=== PATIENT | male | born 1990 | race Hispanic/Latino ===

== ENCOUNTER 2016-12-01 12:03 | Inpatient (IN) | payer OTHER, SELFPAY ==
[~2016-12-01] VITALS: Ht 170.2 cm; Wt 99.8 kg
[2016-12-01] MEDS ORDERED: LORazepam 1 MG TAB PO STA (13:25)
[2016-12-01 13:28] LABS: MEAN CORPUSCULAR HEMOGLOBIN 31.6 pg (27.0-33.0); MEAN CORPUSCULAR HGB CONC 35.4 g/dl (32.0-36.5); MEAN CORPUSCULAR VOLUME 89.3 fl (80.0-96.0); RED CELL DISTRIBUTION WIDTH 12.5 % (11.5-14.5); WHITE BLOOD COUNT 6.9 K/mm3 (4.0-10.0)
[2016-12-01 13:51] LABS: ALBUMIN/GLOBULIN RATIO 1.21 (1.00-1.93); ALKALINE PHOSPHATASE 75 U/L (45-117); ALT/SGPT 53 U/L (12-78); ANION GAP 8 MEQ/L (8-16); AST/SGOT 39 U/L (15-37); BILIRUBIN,DIRECT 0.1 MG/DL (0.0-0.2); BILIRUBIN,TOTAL 0.6 MG/DL (0.2-1.0); BLOOD UREA NITROGEN 17 MG/DL (7-18); CALCIUM LEVEL 9.2 MG/DL (8.5-10.1); CARBON DIOXIDE LEVEL 27 MEQ/L (21-32); CHLORIDE LEVEL 107 MEQ/L (98-107); CREATININE FOR GFR 1.07 MG/DL (0.70-1.30); GLOMERULAR FILTRATION RATE > 60.0 (>60); GLUCOSE, FASTING 83 MG/DL (70-105); SODIUM LEVEL 142 MEQ/L (136-145); TOTAL PROTEIN 7.3 GM/DL (6.4-8.2)
[2016-12-01 14:09] LABS: METHADONE URINE NEGATIVE (NEGATIVE)
[2016-12-01] MEDS ORDERED: NICOTINE 21MG/24HR 1 EA TRANSDERMAL TD ONE (14:30)
[2016-12-01] MEDS ORDERED: MAALOX 30 ML SUSP *UDC PO PRN (18:45)
[2016-12-01] MEDS ORDERED: MOM 30ML SUSPENSION UDC PO PRN (18:45)
[2016-12-01] MEDS: LORazepam 1 MG TAB PO PRN (23:37)
[2016-12-01] MEDS: ACETAMINOPHEN TAB 650MG DOSE (2X325MG) PO PRN (23:37)
[2016-12-02] MEDS: LORazepam 1 MG TAB PO PRN ×2 (06:52→17:19)
[2016-12-02] MEDS: NICOTINE 21MG/24HR 1 EA TRANSDERMAL TD SCH ×2 (09:00→17:19)
--- NOTE | 2016-12-02 11:20 | HPEPDOC ---
Medical History and Physical Date of Admission Dec 01, 2016 at 15:41 History and Physical PCP: None ATTENDING: Dr. Herrera Lin HPI: 26 [facility] unspecified depressive disorder, being medically examined today. The patient was at [employer] for training for 2 weeks from [place] with the [employer]. No acute medical complaints today. Denies any fevers, chills, weakness, fatigue, GR, CP, SOB, cough, palpitations, abdominal pain, N/V/D or changes in bowel or bladder habits. 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 ROS: As noted in HPI, otherwise 11pt ROS of systems reviewed and unremarkable. PE: GEN: 26 yo M, appears stated age. Well-nourished, well developed. No acute distress. Alert and oriented x 3. Pleasant, interactive. HEENT: Normocephalic, atraumatic. Pupils are equal, round, and reactive to light. Extraocular movements are intact. No nystagmus appreciated. Sclera are nonicteric. Conjunctiva without injection. Nose midline. Nasal turbinates without bogginess. EACs both patent BL. TMs both visualized and donohue with good cone of light, no bulging or erythema. No facial asymmetry. Moist mucous membranes. Dentition fair. Pharynx pink and moist, no cobblestoning. Neck supple , trachea midline. No lymphadenopathy or thyromegaly appreciated. CHEST: Regular rate and rhythm, +S1, +S2 LUNGS: Clear to auscultation bilaterally. No wheezes, rales, or rhonchi. Breathing appears symmetric and easy. Patient is speaking in full sentences. No accessory muscle use. ABD: Round, soft, non-tender, non-distended. +Bowel sounds throughout. No rebound or guarding. No costovertebral angle tenderness. EXT: Pulses 2+ bilaterally dorsalis pedis and radial. No lower extremity edema appreciated. SKIN: [place], dry, warm. Capillary refill <2sec. No rashes. NEURO: Alert and oriented x 3. Cranial nerves III-XII are intact. No focal deficits appreciated. EKG: pending. A&P: 26 yo M [facility] for unspecified depressive disorder 1. Psych. Plan per Psychiatry. Obtain baseline EKG to assure the safety of psychiatric medications as they can prolong the QT interval. 2. Nicotine dependence. Patch available. 3. Follow up. No Primary Care Provider. Will attempt to establish PCP on discharge. 4. Elevated AST. Recheck CMP and a.m. 5. [place] RN present throughout exam Vital Signs Vital Signs Date Time Temp Pulse Resp B/P (MAP) Pulse Ox O2 Delivery O2 Flow Rate FiO2 12/01/16 16:05 152/97 (115) 12/01/16 15:58 98.3 77 18 96 Laboratory Data Labs 24H Laboratory Tests 2 12/01/16 12:34: Anion Gap 8, Glomerular Filtration Rate > 60.0, Calcium Level 9.2, Aspartate Amino Transf (AST/SGOT) 39H, Alanine Aminotransferase (ALT/SGPT) 53, Alkaline Phosphatase 75, Total Bilirubin 0.6, Direct Bilirubin 0.1, Total Protein 7.3, Albumin 4.0, Albumin/Globulin Ratio 1.21, Thyroid Stimulating Hormone (TSH) 2.360, Salicylates Level < 1.7L, Acetaminophen Level < 2.0L, Ethyl Alcohol Level < 0.003 12/01/16 13:38: Urine Amphetamines Screen NEGATIVE, Urine Benzodiazepines Screen NEGATIVE, Urine Opiates Screen NEGATIVE, Urine Methadone Screen NEGATIVE, Urine Barbiturates Screen NEGATIVE, Urine Phencyclidine Screen NEGATIVE, Urine Cocaine Metabolite Screen NEGATIVE, Urine Cannabinoids Screen NEGATIVE CBC/BMP Laboratory Tests 12/01/16 12:34 Red Blood Count 5.22, Mean Corpuscular Volume 89.3, Mean Corpuscular Hemoglobin 31.6, Mean Corpuscular Hemoglobin Concent 35.4, Red Cell Distribution Width 12.5 Home Medications No Active Prescriptions or Reported Meds Allergies Coded Allergies: No Known Allergies (Unverified , 12/01/16) Nora Wolfe Dec 02, 2016 11:20
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
[2016-12-02 18:26] VITALS: BP 150/82
--- NOTE | 2016-12-02 22:35 | ECGEPIP ---
Stationary ECG Study [facility] Test Date: 2016-12-02 Pat Name: HEIDI RICHARDSON Department: Room: [place] [address] Gender: M [employer] Manager: : 1990 Requested By: Nora Wolfe Order Number: [id number] Reading MD: Liam Joe Measurements Intervals [place] Rate: 71 P: 68 [place]: 193 QRS: 96 QRSD: 87 T: -9 QT: 371 QTc: 404 Interpretive Statements Normal sinus rhythm with sinus arrhythmia Vertical axis Nonspecific T-wave abnormalities Comparison tracing not available Electronically Signed On 12-02-2016 22:35:10 EDT by Liam Joe
[2016-12-03] MEDS ORDERED: traZODone 50 MG TAB PO PRN (00:30)
[2016-12-03 06:00] VITALS: BP 142/82
[2016-12-03 08:52] LABS: ALBUMIN 3.9 GM/DL (3.2-5.2); ALBUMIN/GLOBULIN RATIO 1.34 (1.00-1.93); ALKALINE PHOSPHATASE 72 U/L (45-117); ALT/SGPT 41 U/L (12-78); ANION GAP 4 MEQ/L (8-16); AST/SGOT 20 U/L (15-37); BILIRUBIN,TOTAL 0.4 MG/DL (0.2-1.0); BLOOD UREA NITROGEN 13 MG/DL (7-18); CALCIUM LEVEL 9.1 MG/DL (8.5-10.1); CARBON DIOXIDE LEVEL 29 MEQ/L (21-32); CHLORIDE LEVEL 103 MEQ/L (98-107); CREATININE FOR GFR 1.06 MG/DL (0.70-1.30); GLOMERULAR FILTRATION RATE > 60.0 (>60); GLUCOSE, FASTING 88 MG/DL (70-105); POTASSIUM SERUM 3.5 MEQ/L (3.5-5.1); SODIUM LEVEL 136 MEQ/L (136-145); TOTAL PROTEIN 6.8 GM/DL (6.4-8.2)
[2016-12-03] MEDS: NICOTINE 21MG/24HR 1 EA TRANSDERMAL TD SCH ×2 (09:00→13:28)
[2016-12-03] MEDS: PROPRANOLOL 10 MG TAB PO PRN ×2 (13:27→19:36)
[2016-12-03 18:00] VITALS: BP 141/99
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
[2016-12-03] MEDS: RAMELTEON 8 MG TAB (ROZEREM) PO PRN (22:44)
[2016-12-04 06:00] VITALS: BP 148/98
[2016-12-04] MEDS: PROPRANOLOL 10 MG TAB PO PRN (06:07)
[2016-12-04] MEDS: NICOTINE 21MG/24HR 1 EA TRANSDERMAL TD SCH (08:05)
--- NOTE | 2016-12-04 16:13 | MHIPNPDOC ---
[facility] Progress Note Progress Note DATE OF SERVICE: 12/04/16 INTERVAL HISTORY: Medication Side effects: Reports no side effects from his Inderal Behavior/events: Has been somewhat agitated today after meeting with his [employer] and other personnel. Has remained reclusive to his room for the most part only occasionally coming out to play games with other patients after taking his Inderal the morning Group Attendance: Has only "peaked" at various groups has not attended any due to his severe anxiety around others Psychiatric Symptoms: Patient reports heavy anxiety and panic attacks consisting of irritability and anger when confronted with his chain of [employer], he described that he was interested in getting Ativan, report from nursing stated that he had become very irritable and demanded that as a threat to lash out. The patient has been heavily isolated to his room and was very unreceptive to his [employer] asking him to attend groups and engage in therapy. VITAL SIGNS: See below. NEW TEST RESULTS: See below CURRENT MEDICATIONS: See below. MENTAL STATUS EXAMINATION: General: Disheveled Speech: Coherent, nonpressured Thought processes: Coherent Thought content: Perseverative Abstract reasoning, and computation: Intact Description of associations: Intact Description of abnormal or psychotic thoughts:Denies any suicidal or homicidal ideation. Denies any auditory or visual hallucinations. Does not appear to be responding to internal stimuli. Does not appear to be endorsing any bizarre or paranoid ideation. Judgment: Limited Insight: Limited Orientation: Alert and orientated 3 Recent and remote memory: Intact Attention span and concentration: Intact Fund of knowledge: Adequate Mood: "Fine" Affect: Mildly irritable DIAGNOSES: 1. Borderline personality disorder with antisocial traits. 2. Unspecified trauma/stressor related disorder. 3. Panic disorder, moderate, with agoraphobia. ASSESSMENT: Some improvement MANAGEMENT PLAN: Medications: Increase Inderal to 20 mg daily and continue Rozerem, patient should not receive Ativan Psychotherapy: Encourage group therapy Social: Possible discharge on Wednesday Misc: None Disposition: The patient will need of further inpatient stay to address medication titrations and severe anxiety with agoraphobia. TIME SPENT: 20 minutes. Vital Signs Vital Signs Date Time Temp Pulse Resp B/P (MAP) Pulse Ox O2 Delivery O2 Flow Rate FiO2 12/04/16 06:07 86 148/88 12/04/16 06:00 97.9 16 12/01/16 15:58 96 Current Medications Current Medications Acetaminophen (Tylenol Tab) 650 mg Q6HP PRN PO HEADACHE or DISCOMFORT Last administered on 12/01/16 23:37; Start 12/01/16 at 18:45; Stop 12/31/16 at 18:44 Al Hydrox/Mg Hydrox/Simethicone (Mylanta) 30 ml Q4HP PRN PO HEARTBURN/ INDIGESTION; Start 12/01/16 at 18:45; Stop 12/31/16 at 18:44 Home Med (Med Rec Complete!) ASDIRECTED XX ; Start 12/01/16 at 15:00; Stop at 15:00; Status DC Lorazepam (Ativan) 1 mg Q6HP PRN PO ANXIETY/AGITATION Last administered on 12/02 17:19; Start 12/01/16 at 18:45; Stop 12/03/16 at 12:07; Status DC Lorazepam (Ativan) 1 mg STAT STAT PO Last administered on 12/01/16 13:53; Start 12/01/16 at 13:25; Stop 12/01/16 at 13:26; Status DC Magnesium Hydroxide (Milk Of Magnesia) 30 ml DAILYPRN PRN PO CONSTIPATION; Start 12/01/16 at 18:45; Stop 12/31/16 at 18:44 Nicotine (Nicoderm Cq 21mg) 1 patch DAILY TD Last administered on 12/04/16 08: 05; Start 12/02/16 at 09:00; Stop 01/01/17 at 08:59 Propranolol HCl (Inderal) 10 mg Q6H PRN PO anxiety Last administered on 06:07; Start 12/03/16 at 12:00; Stop 12/04/16 at 18:00 Propranolol HCl (Inderal) 20 mg Q4HP PRN PO anxiety; Start 12/04/16 at 18:00; Stop 01/03/17 at 17:59 Ramelteon (Rozerem) 8 mg QHS PRN PO sleep Last administered on 12/03/16 22:44 ; Start 12/03/16 at 12:30; Stop 01/02/17 at 12:29 Trazodone HCl (Desyrel) 50 mg QHSP PRN PO INSOMNIA Last administered on 00:33; Start 12/03/16 at 00:30; Stop 12/03/16 at 12:26; Status DC Allergies Coded Allergies: No Known Allergies (Unverified , 12/01/16) GME ATTESTATION My preceptor for this patient encounter was physically present in the building during the encounter and was fully available. As needed, all aspects of the patient interview, examination, medical decision making process, and medical care plan development were reviewed and approved by the preceptor. Preceptor is aware and concurs with the plan as stated in the body of this note and will attest to such by his/her cosignature. ROSARIO SAMUEL DO Dec 04, 2016 16:13
[2016-12-04 18:00] VITALS: BP 129/80
[2016-12-04] MEDS ORDERED: PROPRANOLOL 10 MG TAB PO PRN (18:00)
[2016-12-05 06:40] VITALS: BP 140/98
[2016-12-05] MEDS: NICOTINE 21MG/24HR 1 EA TRANSDERMAL TD SCH (09:43)
[2016-12-05] MEDS: ACETAMINOPHEN TAB 650MG DOSE (2X325MG) PO PRN (18:27)
[2016-12-05 18:37] VITALS: BP 136/96
[2016-12-05 20:55] VITALS: BP 158/96
[2016-12-05] MEDS: RAMELTEON 8 MG TAB (ROZEREM) PO PRN (23:02)
[2016-12-06 06:18] VITALS: BP 130/88
[2016-12-06] MEDS: ACETAMINOPHEN TAB 650MG DOSE (2X325MG) PO PRN ×3 (06:35→20:02)
--- NOTE | 2016-12-06 08:12 | IPN ---
DATE OF SERVICE: 12/05/2016 SUBJECTIVE: "I'm here because of my thoughts but not because of my actions." OBJECTIVE: Patient appears frustrated, somewhat angry, making statements such as "this place is making me crazy." Patient is showing some cluster B traits. No evidence of psychotic symptoms. Patient wanted to make sure we were understanding his situation. I discussed his treatment with the patient and the fact that he is in observation and he will be discharged as soon as the team feels that it is safe to do so. MENTAL STATUS EXAMINATION: Patient is dressed in [facility]. Patient is partially cooperative but appears frustrated, somewhat angry. Speech is normal in rate, volume and articulation. Mood is depressed and anxious. Affect is restricted. No evidence of delusions or hallucinations. Memory, attention and concentration are fair. Patient is denying suicidal or homicidal ideation but he is focused on discharge. Insight and judgment is limited. ASSESSMENT: 1. Depression. 2. Panic disorder. 3. Alcohol/cannabis abuse. PLAN: 1. Continue with propranolol 20 mg by mouth as needed. 2. Continue with Rozerem 8 mg nightly as needed for insomnia.
[2016-12-06] MEDS: NICOTINE 21MG/24HR 1 EA TRANSDERMAL TD SCH (08:59)
[2016-12-06] MEDS ORDERED: IBUPROFEN 600 MG TAB PO PRN (16:15)
[2016-12-06 18:00] VITALS: BP 138/92
[2016-12-07 07:24] VITALS: BP 126/95
[2016-12-07] MEDS: NICOTINE 21MG/24HR 1 EA TRANSDERMAL TD SCH (08:16)
[2016-12-07] MEDS ORDERED: NICO21PAT TD ×2 (10:14→11:06)
[2016-12-07] MEDS ORDERED: PROP10TAB PO ×2 (10:14→11:05)
[2016-12-07] MEDS ORDERED: ROZE8TAB16 PO ×2 (10:14→11:05)
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
== END 2016-12-07 12:00 | disposition home or self-care (01) | DRG 883 ==
LOC: M ED 12:37 → M ED INP 15:41 → M PSY 16:20
PROVIDERS: ADMIT Psychiatry & Neurology Psychiatry; ATTEND Psychiatry & Neurology Psychiatry
DX: F60.3 Borderline personality disorder (principal); F60.2 Antisocial personality disorder; F40.01 Agoraphobia with panic disorder; F43.9 Reaction to severe stress, unspecified; F17.200 Nicotine dependence, unspecified, uncomplicated